=== PATIENT | female | born 1990 | race Caucasian/White ===

== ENCOUNTER 2021-06-12 08:43 | Inpatient (IN) | payer BC ==
[2021-06-12] MEDS ORDERED: Misoprostol 200 MCG TAB PR PRN (09:12)
[2021-06-12] MEDS ORDERED: Promethazine HCl 25 MG/ML VIAL IM PRN ×2 (09:12→11:33)
[2021-06-12] MEDS ORDERED: Butorphanol Tartrate 1 MG/ML VIAL SLOW IVP PRN (09:12)
[2021-06-12] MEDS ORDERED: Docusate 100 MG CAP PO PRN (09:12)
[2021-06-12] MEDS ORDERED: Ondansetron PF 4 MG/2 ML Vial IVP PRN ×3 (09:12→17:28)
[2021-06-12] MEDS ORDERED: Acetaminophen 500 MG TAB PO PRN (09:12)
[2021-06-12] MEDS ORDERED: Lidocaine 1% (PF) 30 ML VIAL SC PRN (09:12)
[2021-06-12] MEDS ORDERED: HYDROcodone/Acetaminophen 5/325 mg Tablet PO PRN ×3 (09:12→17:28)
[2021-06-12] MEDS ORDERED: Ibuprofen 800 MG TAB PO PRN (09:12)
[2021-06-12] MEDS ORDERED: hydrALAZINE 20 MG/ML VIAL SLOW IVP PRN ×2 (09:12→17:28)
[2021-06-12] MEDS ORDERED: Diphenoxylate HCl/Atropine Tablet PO PRN ×2 (09:12)
[2021-06-12] MEDS ORDERED: Penicillin G Potassium 5 MILL.UNITS in Sodium Chloride 0.9% 100 ML IVPB SCH (09:30)
[2021-06-12 09:49] LABS: Hemoglobin 12.6 g/dL (12.0-15.5); Mean Corpuscular HGB CONC 32.8 g/dL (32.0-36.0); Mean Corpuscular Hemoglobin 28.3 pg (27.0-33.0); Mean Corpuscular Volume 86.3 fl (81.6-98.3); Platelet Count 214 10x3/uL (150-450); RBC Distribution Width 13.9 % (11.5-14.5); Red Blood Cell (RBC) Count 4.45 10x6/uL (3.90-5.03); White Blood Cell (WBC) Count 11.4 10x3/uL (3.5-10.5)
[2021-06-12 10:17] VITALS: BMI 31.0
[2021-06-12 10:33] LABS: Hep B Surf Ag Non-Reactive S/CO (NonReactive); Syphilis Antibody Nonreactive (Nonreactive); Syphilis Antibody Index 0.11 S/CO (<1.00 Non-Reactive)
[2021-06-12 10:36] LABS: HBSAg Index 0.16 S/CO (0-0.99)
[2021-06-12] MEDS ORDERED: Fentanyl 2 mcg/Bup 0.1% Cadd 100 ML ONE (10:54)
[2021-06-12] MEDS: Lactated Ringer's 1,000 ML IV SCH ×2 (11:24→23:27)
[2021-06-12] MEDS ORDERED: diphenhydrAMINE 50 MG/ML VIAL IVP PRN (11:33)
[2021-06-12] MEDS ORDERED: Naloxone HCl 0.4 mg/ml Vial IVP PRN ×2 (11:33)
[2021-06-12] MEDS ORDERED: ePHEDrine Sulfate 50 MG/10 ML VIAL SLOW IVP PRN (11:33)
[2021-06-12] MEDS ORDERED: Hydrocerin (Eucerin) Cream 120 gm Jar TOP PRN (11:33)
[2021-06-12] MEDS ORDERED: Lactated Ringer's 500 ML IV PRN (11:33)
[2021-06-12] MEDS ORDERED: Acetaminophen 325 MG TAB PO PRN (11:33)
[2021-06-12] MEDS ORDERED: Communication Order-Pharmacy FS SCH (11:45)
[2021-06-12] MEDS ORDERED: Fentanyl 2 mcg/Bupivacaine 0.1% Cassette 100 ML EPIDURAL SCH (11:45)
[2021-06-12 12:01] LABS: SARS-CoV-2 NAA Rapid Test Not Detected (NotDetected)
[2021-06-12] MEDS: NS w/ Oxytocin 30 units 500 ML IV SCH ×2 (13:29→17:41)
[2021-06-12] MEDS: Penicillin G 2.5 MILL.units 2.5 MILL.UNITS in Premix Bag 1 BAG IVPB SCH ×2 (14:01→23:27)
[2021-06-12] MEDS ORDERED: diphenhydrAMINE 25 MG CAP PO PRN (17:28)
[2021-06-12] MEDS ORDERED: Lanolin Ointment 7 GM TUBE TOP PRN (17:28)
[2021-06-12] MEDS ORDERED: Bisacodyl 10 MG SUPP PR PRN (17:28)
[2021-06-12] MEDS ORDERED: Misoprostol 200 MCG TAB VAG PRN (17:28)
[2021-06-12] MEDS ORDERED: Milk Of Magnesia 30 ML UDCUP PO PRN (17:28)
[2021-06-12] MEDS ORDERED: Preparation H Ointment 28 GM TUBE PR PRN (17:28)
[2021-06-12] MEDS ORDERED: Zolpidem Tartrate 5 MG TAB PO PRN (17:28)
[2021-06-12] MEDS: Docusate Calcium (SURFAK) 240 MG CAP PO SCH (21:46)
[2021-06-12] MEDS: Ibuprofen 800 MG TAB PO SCH (21:46)
[2021-06-12] MEDS: Benzocaine-Menthol 82.5 ML CAN TOP PRN (21:51)
[2021-06-13] MEDS: HYDROcodone/Acetaminophen 5/325 mg Tablet PO PRN ×3 (02:54→21:15)
[2021-06-13] MEDS: Ibuprofen 800 MG TAB PO SCH ×3 (05:23→21:14)
[2021-06-13] MEDS: Ferrous Sulfate 325 MG TAB PO SCH ×2 (08:53→16:56)
[2021-06-13] MEDS: Docusate Calcium (SURFAK) 240 MG CAP PO SCH ×2 (08:53→21:14)
[2021-06-13] MEDS: Benzocaine-Menthol 82.5 ML CAN TOP PRN (17:16)
[2021-06-13] MEDS ORDERED: Boostrix 0.5 ML (Tdap) VIAL IM ONE (17:28)
[2021-06-14] MEDS: Ibuprofen 800 MG TAB PO SCH (05:36)
[2021-06-14] MEDS: HYDROcodone/Acetaminophen 5/325 mg Tablet PO PRN ×2 (05:38→09:54)
[2021-06-14 07:41] VITALS: BP 116/76; TEMP 97.8
[2021-06-14] MEDS: Ferrous Sulfate 325 MG TAB PO SCH (08:01)
[2021-06-14] MEDS: Docusate Calcium (SURFAK) 240 MG CAP PO SCH (09:54)
== END 2021-06-14 12:35 | disposition home or self-care (01) | DRG 807 ==
LOC: CSHLD/OP 08:43 → CSHLD 10:10 → CSHPP 20:35
PROVIDERS: ADMIT Obstetrics & Gynecology; ATTEND Obstetrics & Gynecology
PROC: 10E0XZZ Delivery of Products of Conception, External Approach (ICD-10-PCS; principal; 2021-06-12)
PROC: 0HQ9XZZ Repair Perineum Skin, External Approach (ICD-10-PCS; 2021-06-12)
DX: O70.0 First degree perineal laceration during delivery (principal); Z37.0 Single live birth; Z3A.39 39 weeks gestation of pregnancy; Z20.822 Contact with and (suspected) exposure to COVID-19
CPT/HCPCS: 36415; 51702; 85027; 86780; 86850; 86900; 86901; 87340; J2540; J2590; J3490; J7120; U0002